=== PATIENT | male | born 1985 | race Caucasian/White ===

== ENCOUNTER 2021-11-23 13:35 | Emergency (ER) | payer OTHER ==
[2021-11-23] MEDS ORDERED: IBUPROFEN800 MG PO (14:51)
[2021-11-23] MEDS ORDERED: VIBRAMYCIN100 MG PO (14:57)
== END 2021-11-23 15:25 | disposition home or self-care (01) ==
LOC: FER 13:35
DX: S80.02XA Contusion of left knee, initial encounter (principal); F17.210 Nicotine dependence, cigarettes, uncomplicated; Z28.310 Unvaccinated for COVID-19; V29.3XXA Motorcycle rider (driver) (passenger) injured in unspecified nontraffic accident, initial encounter; Y92.410 Unspecified street and highway as the place of occurrence of the external cause
CPT/HCPCS: 73564; J1885